=== PATIENT | female | born 1960 | race Caucasian/White ===

== ENCOUNTER 2021-02-04 12:56 | Inpatient (IN) | payer MEDICARE, MEDICAID, SELFPAY ==
--- NOTE | ~2021-02-04 | XR_ITS ---
XR hip LT 2V w AP pelvis DATE: 02/04/2021 16:41 INDICATION: Fall. Left hip and leg pain TECHNIQUE: AP pelvis. AP and lateral views of left hip. COMPARISON: None FINDINGS: Mild to moderate levoscoliosis of the lumbar spine. No pelvic fracture or bone destruction is detected. The pubic symphysis and sacroiliac joints are intact. Hip joint spaces are symmetric and relatively preserved. No fracture or dislocation, avascular necrosis or bone destruction of the left hip. IMPRESSION: No pelvic or left hip fracture is detected Reviewed, dictated and finalized at location A.
--- NOTE | ~2021-02-04 | XR_ITS ---
EXAMINATION: XR chest 1V portable EXAM DATE: 02/04/2021 13:58 INDICATION: Shortness of breath. TECHNIQUE: Portable AP frontal chest x-ray was obtained. Comparison is made to prior examination from 11/10/2017. FINDINGS: Previously seen pleural effusion has resolved. There is linear left basilar opacity consist ent with subsegmental atelectasis. The lungs are otherwise clear. There are no pleural effusions. T he cardiomediastinal silhouette is within normal limits. There is no pneumothorax suspected. The emily mayuri and soft tissues are unremarkable. IMPRESSION: Basilar subsegmental atelectasis. Reviewed, dictated and finalized at location B.
--- NOTE | ~2021-02-04 | CT_ITS ---
EXAMINATION: CT brain wo con EXAM DATE: 02/04/2021 14:23 INDICATION: Slurred speech. TECHNIQUE: Spiral CT of the head was performed without contrast. Axial, coronal and sagittal images were reviewed. The dose-length product (DLP) for this examination was 605.33 mGy-cm. The exposure w as tailored according to patient size, and iterative reconstruction (ASIR) was used as additional dos e reduction technique. There is no prior study for comparison. 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 Small old left cerebellar infarc tion. Moderate size old right caudate head, external capsular infarction. There is no acute intrapare nchymal hemorrhage. No evidence of intraparenchymal brain mass lesion. No evidence of acute infarct ion. Please note that initial head CT has limited sensitivity for small or acute infarctions. There is moderate periventricular and subcortical hypodensity, nonspecific but probably related to small ve ssel ischemic disease. There is mild prominence of the sulci and ventricles related to cerebral atr ophy. There is intracranial carotid arteriosclerosis. There are no extra-axial collections. There is no mass effect or midline shift. 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 There is right-sided lobe s urgical change. Soft tissue is unremarkable. The visualized sinuses and mastoid air cells are well a erated. IMPRESSION: 1. No acute intracranial findings. 2. Old infarctions and chronic age related findings. Reviewed, dictated and finalized at location B.
--- NOTE | ~2021-02-04 | XR_ITS ---
EXAMINATION: XR femur LT min 2V DATE: 02/04/2021 16:41 INDICATION: Left thigh pain. Fall. TECHNIQUE: 2 views of left femur on 4 radiographs were obtained. COMPARISON: None. FINDINGS: Bone alignment is normal. No fracture. There is mild left hip osteoarthritis and mild left knee osteoarthritis. No knee joint effusion. IMPRESSION: 1. Mild polyarticular osteoarthritis. Reviewed, dictated and finalized at location A.
[2021-02-04 12:59] VITALS: BP 99/81; PULSE 106; RESP 21; TEMP 37; O2SAT 99
--- NOTE | 2021-02-04 13:11 | ECG_ITS ---
Measurements Intervals [place] Rate: 100 P: 94 PA: 137 QRS: 69 QRSD: 67 T: 89 QT: 256 QTc: 331 Interpretive Statements SINUS TACHYCARDIA LOW QRS VOLTAGE IN LIMB LEADS NONSPECIFIC T-WAVE ABNORMALITY- ANTEROLAT/HIGH LAT LEADS BASELINE WANDER- I, II, AVR, AVL, AVF, V1-V6 BORDERLINE ECG Electronically Signed On 02-04-2021 14:04:16 CDT by Serjio Ware D.O.
[2021-02-04 13:20] LABS: Add Urine Microscopic? YES; Appearance Urine Cloudy (Clear); Bacteria Urine Trace /hpf; Bilirubin Urine Negative (Negative); Blood Urine Negative (Negative); Color Urine Yellow (Yellow); Glucose Urine UA Negative (Negative); Ketones Urine Negative (Negative); Leukocyte Esterase Ur 2+ LEU/UL (Negative); Mucus Urine Rare /lpf; Nitrate Urine Positive (Negative); Protein Urine 2+ mg/dL (Negative); Specific Grav Ur 1.018 (1.001-1.035); Squamous Epithelial Cell Urine Few /hpf (Few); WBC Urine >75 /hpf
[2021-02-04 13:49] VITALS: BP 104/77; PULSE 108; RESP 23; O2SAT 100
[2021-02-04 14:19] LABS: Basophils Absolute Auto 0.1 K/mm3 (0.0-0.1); Basophils Percent Auto 0.3 % (0.2-1.2); Hemoglobin 13.6 g/dL (12.0-15.0); Immature Granulocyte Absolute 0.14 K/mm3 (0.00-0.031); Immature Granulocyte Percent A 0.7 % (0-0.5); Lymphocytes Absolute Auto 2.88 K/mm3 (0.9-3.2); Lymphocytes Percent Auto 14.2 % (18.3-44.2); Mean Corpuscular HGB Conc 33.2 g/dl (32-36); Mean Corpuscular Hemoglobin 31.3 pg (26-34); Mean Corpuscular Volume 94.5 fl (80-100); Mean Platelet Volume 10.5 fl (7.4-10.4); Monocytes Absolute Auto 2.6 K/mm3 (0.1-0.6); Monocytes Percent Auto 12.7 % (2.6-8.5); Neutrophils Absolute Auto 14.6 K/mm3 (1.3-6.7); Neutrophils Percent Auto 72.1 % (45.5-73.1); Platelet Count Result 175 k/mm3 (150-375); Red Blood Count 4.34 M/mm3 (4.2-5.4); Red Cell Distribution Width 13.4 % (11.5-14.5); White Blood Count 20.2 K/mm3 (4.5-10.0)
[2021-02-04] MEDS: SODIUM CHLORIDE 0.9% IV 1,000 ML 150 ML IV CONT (14:24)
[2021-02-04 14:29] VITALS: BP 129/84; PULSE 101; RESP 31; O2SAT 96
[2021-02-04 14:29] LABS: Alanine Aminotransferase 16 U/L (4-35); Albumin Level 3.7 g/dL (3.5-5.1); Alkaline Phosphatase 41 U/L (38-126); Anion Gap 8 mmol/L (8-16); Aspartate Amino Transferase 38 U/L (14-36); Bilirubin,Total 0.8 mg/dL (0.2-1.3); Blood Urea Nitrogen 12 mg/dL (7-17); Calcium 9.2 mg/dL (8.4-10.2); Carbon Dioxide 27 mmol/L (22-30); Chloride 103 mmol/L (98-107); Estimated Glomerular Filt Rate > 60; Glucose 103 mg/dL (65-105); Potassium 3.9 mmol/L (3.4-5.0); Sodium 138 mmol/L (137-145)
[2021-02-04 14:31] LABS: INR 1.6; Prothrombin Time 19.8 Seconds (11.1-14.7)
[2021-02-04 14:40] LABS: Troponin I < 0.012 ng/mL (0.000-0.034)
[2021-02-04 15:00] LABS: Ethanol < 10 mg/dL (<10)
--- NOTE | 2021-02-04 15:30 | PM.IMHP ---
H&P: HPI History of Present Illness Date/Time: 02/04/21 15:30 Chief Complaint: Altered mental status. Narrative: This is a 60-year-old female with schizophrenia with paranoia, depression, bipolar disorder, and glaucoma which has left her legally blind who presented to the emergency department earlier today via EMS from [facility] for evaluation of altered mental status. She is a poor historian and as such a majority of the following is obtained via a review of her electronic medical records. According to staff at the custodial, she is alert and disoriented at baseline but will follow commands and ambulates with assistance. It is my understanding that she typically communicates in a very loud voice and today she was not speaking nearly as much or as loud and she was brought in for evaluation. At the time my evaluation she reports burning with urination and also complains of left hip and upper leg pain. She tells me that she had a fall although she cannot give me any further details and there is no documentation from the custodial that she had a fall. She has no other complaints and denies headache, fever, chills, sweats, cold and flu symptoms, chest pain, and shortness of breath. Review of Systems Review of Systems: Narrative: Twelve systems were reviewed with pertinent positives and negatives as per HPI. Limited due to her altered mental status and underlying psychiatric illness. Patient is legally blind but says she can see some shadows with her right eye. She tells me that she fell within the last week and thinks that she broke both of her legs. She is not complaining of any pain at this time. No headache. She denies sinus congestion, rhinorrhea, otalgia, and odynophagia. No chest pain, cough, or shortness of breath. She denies nausea, vomiting, and diarrhea. Except as documented, all other systems were reviewed and are negative. [facility] Past Medical History Medical History (Updated 02/04/21 @ 20:05 by Breanna Vitale PA-C) Bipolar disorder Depression with anxiety Glaucoma Legal blindness Paranoid schizophrenia Stress incontinence Tardive dyskinesia Attributed to Abilify. Vitamin D deficiency Surgical History Surgical History (Updated 02/04/21 @ 19:56 by Breanna Vitale PA-C) No history of previous surgery Family History Family History Father Carcinoma of colon Family history of diabetes mellitus in first degree relative Patient's father is Family history of heart disease in male family member before age 55 Grandparent Family history of heart disease in male family member before age 55 Social History Social History (Updated 02/04/21 @ 19:57 by Breanna Vitale PA-C) Social History: Resident at [facility]. Her healthcare power of immigration attorney is Kirt Aguilar and she is listed as a full code. She tells me that it is okay to speak with her sister, Melisa Rodrigues, regarding her medical conditions. The patient tells me that she continues to smoke but I am not certain if this is true or not. She denies alcohol and substance use. On disability due to her psychiatric illnesses and legal blindness. Meds Home Medications and Allergies Home Medications Medication Instructions Recorded Confirmed Type Monique-Lanta 30 ml PO Q4H PRN 02/04/21 02/04/21 History acetaminophen [Tylenol] 650 mg PO Q6H PRN 02/04/21 02/04/21 History cholecalciferol (vitamin D3) 25 mcg PO DAILY 02/04/21 02/04/21 History [Vitamin D3] divalproex 1,000 mg PO HS 02/04/21 02/04/21 History fluticasone propionate [Allergy 1 spray INTRANASAL DAILY 02/04/21 02/04/21 History Relief (fluticasone)] ibuprofen 200 mg PO Q4H PRN 02/04/21 02/04/21 History loperamide 2 mg PO Q3H PRN 02/04/21 02/04/21 History lorazepam 1 mg PO QID 02/04/21 02/04/21 History lurasidone [Latuda] 120 mg PO DAILY 02/04/21 02/04/21 History quetiapine [Sero
--- NOTE | 2021-02-04 15:34 | ED.AMS ---
HPI - Altered Mental Status General Chief Complaint: Altered Mental Status Stated Complaint: AMS Time Seen by Provider: 02/04/21 13:03 Source: EMS and RN notes reviewed Mode of arrival: EMS Limitations: altered mental status History of Present Illness HPI narrative: 60-year-old with schizophrenia, bilateral blindness was sent from a half-way with complaints of increased confusion, patient has been extremely loud since this morning patient is a poor historian . Most of the history was from the half-way records. Patient denies any headache, chest pain or shortness of breath. MD complaint: altered mental status Onset (ago): day(s) (1) Related Data Allergies Allergy/AdvReac Type Severity Reaction Status Date / Time No Known Allergies Allergy Unknown Verified 11/01/17 16:51 Review of Systems Review of Systems: ROS unobtainable: Yes unobtainable due to mental status PMFSH Family History Family History Father Carcinoma of colon Family history of diabetes mellitus in first degree relative Patient's father is Family history of heart disease in male family member before age 55 Grandparent Family history of heart disease in male family member before age 55 Social History Social History Second hand tobacco smoke exposure: No Alcohol intake: never Exam Narrative: Exam Narrative: GENERAL: Well-appearing, well-nourished, and in no acute distress. HEAD: Normocephalic, atraumatic. EYES:Blind ENT: Nares clear, no rhinorrhea or epistaxis. Mucous membranes moist. NECK: Supple. CHEST: Clear to auscultation. No respiratory distress. HEART: Regular rate and rhythm. No murmur heard. Normal peripheral pulses. ABDOMEN: Soft, nontender, nondistended, normal active bowel sounds. EXTREMITIES: Normal range of motion. No edema. SKIN: Warm, dry, no rash. NEURO: No focal deficits. Alert and oriented x3. PSYCH: Normal mood and affect. Course Course Emergency Course: Patient was very cooperative here in the ER, she was comfortably laying on the bed. Informed her about the lab work. Discussed with hospitalist agreed to admit the patient Vital Signs Vital signs: Vital Signs Temperature 37.0 C 02/04/21 12:59 Pulse Rate 106 H 02/04/21 12:59 Respiratory Rate 21 H 02/04/21 12:59 Blood Pressure 99/81 L 02/04/21 12:59 Pulse Oximetry 99 02/04/21 12:59 Temperature 37.0 C 02/04/21 12:59 Pulse Rate 101 H 02/04/21 14:29 Respiratory Rate 31 H 02/04/21 14:29 Blood Pressure 129/84 02/04/21 14:29 Pulse Oximetry 96 02/04/21 14:29 MDM - Altered Mental Status Lab Data Result diagrams: 02/04/21 14:11 02/04/21 14:11 Labs: Lab Results 02/04/21 02/04/21 02/04/21 Range/Units 13:09 14:11 14:11 WBC 20.2 H (4.5-10.0) K/mm3 RBC 4.34 (4.2-5.4) M/mm3 Hgb 13.6 (12.0-15.0) g/dL Hct 41.0 (37.0-47.0) % MCV 94.5 (80-100) fl MCH 31.3 (26-34) pg MCHC 33.2 (32-36) g/dl RDW 13.4 (11.5-14.5) % Plt Count 175 (150-375) k/mm3 MPV 10.5 H (7.4-10.4) fl Immature Gran % (Auto) 0.7 H (0-0.5) % Neut % (Auto) 72.1 (45.5-73.1) % Lymph % (Auto) 14.2 L (18.3-44.2) % Burt % (Auto) 12.7 H (2.6-8.5) % Eos % (Auto) 0.0 (0-4.4) % Baso % (Auto) 0.3 (0.2-1.2) % Lymph # (Auto) 2.88 (0.9-3.2) K/mm3 Burt # (Auto) 2.6 H (0.1-0.6) K/mm3 Eos # (Auto) 0.0 (0-0.3) K/mm3 Baso # (Auto) 0.1 (0.0-0.1) K/mm3 Abs Immat Gran (auto) 0.14 H (0.00-0.031) K/mm3 Absolute Neuts (auto) 14.6 H (1.3-6.7) K/mm3 Absolute Nucleated RBC 0.0 (0.0-0.012) K/mm3 Nucleated RBC % 0.0 (0.0-0.2) % PT 19.8 H (11.1-14.7) Seconds INR 1.6 Sodium (137-145) mmol/L Potassium (3.4-5.0) mmol/L Chloride (98-107) mmol/L Carbon Dioxide (22-30) mmol/L Anion Gap (8-16) mmol/L BUN
[2021-02-04 15:44] VITALS: BP 105/71; PULSE 96; RESP 25; O2SAT 93
[2021-02-04 16:37] VITALS: BP 128/83; PULSE 93; RESP 20; O2SAT 98
[2021-02-04 17:06] VITALS: BMI 25.2
[2021-02-04] MEDS: SODIUM CHLORIDE 0.9% IV 1,000 ML 125 ML IV CONT (18:45)
[2021-02-04] MEDS: LORazepam (*CRX) 1 MG TABLET PO (21:24)
[2021-02-04] MEDS: DIVALPROEX SODIUM DR 250 MG TABEC 1000 MG PO (21:24)
[2021-02-04] MEDS: rOPINIRole HCL 1 MG TABLET 2 MG PO (21:25)
[2021-02-04] MEDS: QUEtiapine FUMARATE 25 MG TABLET 75 MG PO (21:25)
[2021-02-04 22:00] VITALS: BP 100/50; PULSE 85; RESP 16; TEMP 36.4; O2SAT 96
[2021-02-05 06:00] VITALS: BP 100/60; PULSE 88; RESP 18; TEMP 36.6; O2SAT 94
[2021-02-05 06:12] LABS: Basophils Percent Auto 0.3 % (0.2-1.2); Eosinophils Percent Auto 0.2 % (0-4.4); Hematocrit 36.5 % (37.0-47.0); Hemoglobin 11.9 g/dL (12.0-15.0); Immature Granulocyte Absolute 0.05 K/mm3 (0.00-0.031); Immature Granulocyte Percent A 0.4 % (0-0.5); Lymphocytes Percent Auto 20.2 % (18.3-44.2); Mean Corpuscular HGB Conc 32.6 g/dl (32-36); Mean Corpuscular Hemoglobin 31.1 pg (26-34); Mean Corpuscular Volume 95.3 fl (80-100); Mean Platelet Volume 10.7 fl (7.4-10.4); Monocytes Absolute Auto 1.8 K/mm3 (0.1-0.6); Monocytes Percent Auto 14.3 % (2.6-8.5); Neutrophils Percent Auto 64.6 % (45.5-73.1); Platelet Count Result 154 k/mm3 (150-375); Red Blood Count 3.83 M/mm3 (4.2-5.4); Red Cell Distribution Width 13.3 % (11.5-14.5); White Blood Count 12.4 K/mm3 (4.5-10.0)
[2021-02-05 06:23] LABS: Ammonia < 9 umol/L (9-30)
[2021-02-05 06:26] LABS: Alanine Aminotransferase 16 U/L (4-35); Albumin Level 3.1 g/dL (3.5-5.1); Alkaline Phosphatase 37 U/L (38-126); Anion Gap 6 mmol/L (8-16); Aspartate Amino Transferase 31 U/L (14-36); Bilirubin,Total 0.4 mg/dL (0.2-1.3); Blood Urea Nitrogen 8 mg/dL (7-17); Calcium 8.5 mg/dL (8.4-10.2); Carbon Dioxide 26 mmol/L (22-30); Chloride 108 mmol/L (98-107); Estimated CRCL calculation 62 ml/min; Estimated Glomerular Filt Rate > 60; Glucose 100 mg/dL (65-105); Potassium 3.8 mmol/L (3.4-5.0); Sodium 140 mmol/L (137-145)
[2021-02-05 07:20] LABS: Valproic Acid 77.7 ug/mL (50-120)
[2021-02-05] MEDS: rOPINIRole HCL 1 MG TABLET 2 MG PO ×2 (09:13→20:41)
[2021-02-05] MEDS: FLUTICASONE PROPIONATE 0.05% NA SPR 16 GM BTL (*BKC) 1 SPRAY NASAL (09:14)
[2021-02-05] MEDS: QUEtiapine FUMARATE 25 MG TABLET PO ×2 (09:14→11:11)
[2021-02-05] MEDS: CHOLECALCIFEROL 1,000 UNITS TABLET 1000 UNITS PO (09:14)
[2021-02-05] MEDS: LORazepam (*CRX) 1 MG TABLET PO ×4 (09:14→20:41)
--- NOTE | 2021-02-05 11:05 | PM.IMPN ---
Progress Note: A&P Assessment and Plan (1) Altered mental status: Qualifiers: Altered mental status type: unspecified Qualified Code(s): R41.82 - Altered mental status, unspecified Code(s): R41.82 - Altered mental status, unspecified Status: Acute Assessment and Plan: The patient seems to be at her reported baseline at the time my evaluation. evidence of infection, specifically UTI, and likely that is the etiology of her increasing confusion earlier today. Patient is able to tell me name and place, but does not know the year WBC are trending down 12.4 today from 20.2 UA does indicate an infection Urine culture pending Ceftriaxone 1 gm Daily day 2 Trend Labs Labs in the am (2) Urinary tract infection: Code(s): N39.0 - Urinary tract infection, site not specified Status: Acute Assessment and Plan: See above (3) Psychiatric illness: Code(s): F99 - Mental disorder, not otherwise specified Status: Acute Assessment and Plan: Patient does have some paranoia and has some stories Paranoid schizophrenia, depression, anxiety, and bipolar disorder. Continue divalproex 1000mg PO, lorazepam 1mg PO QID, lurasidone 120mg PO Daily, quetiapine 20mg PO scheduled and PRN. (4) Left leg pain: Code(s): M79.605 - Pain in left leg Status: Acute Assessment and Plan: Nonfocal exam. Leg xray shows no fracture Hip xray shows no fracture Time Spent With Patient Time with patient: 25 - 35 minutes Subjective Date/time seen: 02/05/21 11:05 Miss Novak is a 60-year-old female with past medical history of schizophrenia, depression, bipolar, and glaucoma who presented to the emergency room for altered mental status. At baseline this patient is alert oriented times 1-2. Today patient could tell me that she was at the hospital and her name. She also could tell me the present with choices. Upon walking into the room patient was sitting on her bed and stating that she went to get out here in smoke a cigarette. Patient is a very poor historian and does not know why she is here however was reported by the [facility] that she was more confused and less talkative. Patient is very emotional and is up and down. She keep screaming and crying about her mother and father were . She also states that she fell about a week ago and broke her arm and hip. However she does have full flexion and extension in both areas. She does state that she is sore however cannot give a location. She is a very loud. Patient seems as if the room is spinning when looking in at her eyes however she denies being dizzy, lightheadedness, fatigue, weakness, nausea, vomiting, constipation, sweats, chills, diarrhea, falls, or syncope. Asked patient about her urinary dysfunction she stated that she is not having any urinary dysfunction today. Review of Systems Review of Systems: All systems reviewed & are unremarkable except as noted in HPI and below Exam Const: General: cooperative, healthy appearing, comfortable, no acute distress, well developed, alert and awake Nutritional Appearance: average body habitus, well nourished and thin Orientation/consciousness: oriented to person and oriented to place Limitations: no limitations HENMT: Head: normal to inspection Ears: hearing grossly normal bilaterally and TM's normal bilaterally General nose exam: Normal external nose present Mouth: Yes Normal oral and palatal mucosa present, Yes lip normal and Yes tongue normal Teeth and gingiva: abnormal tooth and associated gingiva and poor dentition Eyes: General: appearance normal, both eyes and all related structures Alignment and Position: alignment normal Periorbital: periorbital findings normal Eyelids: eyelids normal Conjunctivae: conjunctivae normal Sclera: sclerae normal Pupils: Equal, round and reactive pupils present EOM: EOMs int
[2021-02-05 11:36] VITALS: O2SAT 94
[2021-02-05 14:00] VITALS: BP 103/63; PULSE 106; RESP 16; TEMP 35.9; O2SAT 100
[2021-02-05] MEDS: QUEtiapine FUMARATE 25 MG TABLET 75 MG PO (20:41)
[2021-02-05] MEDS: DIVALPROEX SODIUM DR 250 MG TABEC 1000 MG PO (20:42)
[2021-02-05 21:53] VITALS: BP 106/65; PULSE 78; RESP 20; TEMP 36.6; O2SAT 97
[2021-02-06 05:49] VITALS: BP 90/63; PULSE 77; RESP 16; TEMP 36.3; O2SAT 94
[2021-02-06 06:21] LABS: Hematocrit 36.7 % (37.0-47.0); Hemoglobin 11.9 g/dL (12.0-15.0); Mean Corpuscular HGB Conc 32.4 g/dl (32-36); Mean Corpuscular Hemoglobin 30.9 pg (26-34); Mean Corpuscular Volume 95.3 fl (80-100); Platelet Count Result 189 k/mm3 (150-375); Red Blood Count 3.85 M/mm3 (4.2-5.4); Red Cell Distribution Width 13.2 % (11.5-14.5); White Blood Count 7.2 K/mm3 (4.5-10.0)
[2021-02-06 06:32] LABS: Anion Gap 7 mmol/L (8-16); Blood Urea Nitrogen 10 mg/dL (7-17); Carbon Dioxide 28 mmol/L (22-30); Chloride 108 mmol/L (98-107); Estimated CRCL calculation 62 ml/min; Estimated Glomerular Filt Rate > 60; Glucose 92 mg/dL (65-105); Potassium 3.9 mmol/L (3.4-5.0); Sodium 143 mmol/L (137-145)
[2021-02-06] MEDS: ACETAMINOPHEN 325 MG TABLET 650 MG PO (07:01)
[2021-02-06 07:05] VITALS: BP 106/72
[2021-02-06] MEDS: rOPINIRole HCL 1 MG TABLET 2 MG PO (08:10)
[2021-02-06] MEDS: FLUTICASONE PROPIONATE 0.05% NA SPR 16 GM BTL (*BKC) 1 SPRAY NASAL (08:10)
[2021-02-06] MEDS: QUEtiapine FUMARATE 25 MG TABLET PO ×2 (08:10→12:15)
[2021-02-06] MEDS: CHOLECALCIFEROL 1,000 UNITS TABLET 1000 UNITS PO (08:10)
[2021-02-06] MEDS: LORazepam (*CRX) 1 MG TABLET PO ×2 (08:10→12:15)
--- NOTE | 2021-02-06 10:30 | PM.DS ---
DS: Admitting Diagnosis Admitting Diagnosis Admitting Diagnosis: UTI DS: Discharge Diagnosis Discharge Diagnosis (1) Altered mental status: Qualifiers: Altered mental status type: unspecified Qualified Code(s): R41.82 - Altered mental status, unspecified Code(s): R41.82 - Altered mental status, unspecified Status: Acute Assessment and Plan: The patient seems to be at her reported baseline at the time my evaluation. evidence of infection, specifically UTI, and likely that is the etiology of her increasing confusion earlier today. Patient is able to tell me name and place, but does not know the year WBC are trending down 12.4 today from 20.2 UA does indicate an infection Urine culture pending Ceftriaxone 1 gm Daily day 2 Trend Labs Labs in the am (2) Urinary tract infection: Code(s): N39.0 - Urinary tract infection, site not specified Status: Acute Assessment and Plan: See above (3) Psychiatric illness: Code(s): F99 - Mental disorder, not otherwise specified Status: Acute Assessment and Plan: Patient does have some paranoia and has some stories Paranoid schizophrenia, depression, anxiety, and bipolar disorder. Continue divalproex 1000mg PO, lorazepam 1mg PO QID, lurasidone 120mg PO Daily, quetiapine 20mg PO scheduled and PRN. (4) Left leg pain: Code(s): M79.605 - Pain in left leg Status: Acute Assessment and Plan: Nonfocal exam. Leg xray shows no fracture Hip xray shows no fracture DS: Summary Hospital Course Hospital Course: Miss Novak is a 60-year-old female with past medical history of schizophrenia, depression, bipolar, and glaucoma who presented to the emergency room for altered mental status. At baseline this patient is alert oriented times 1-2. Patient has improved since admission, and seems to be back at her baseline. Patient has been treated with Rocephin for her UTI which seems to be working with her white blood cell count trending downward 7.2 today which started at 12.4 upon admission. Patient has no complaints except for she is complaining of left hip pain. Patient stated that she did have a fall [facility] the [facility] and her hip hurts. I asked patient if she feels like herself she said she did feel like herself. I also talked to the patient about going back to the nurse, she said she was ready. Patient is very talkative and talks very loud. She does seem to have a slow to recall response system as well. She denies being dizzy, lightheadedness, fatigue, weakness, nausea, vomiting, constipation, sweats, chills, diarrhea, urinary dysfunction, pain or burning on urination, or syncope. Patient did have foot x-rays and hip x-rays done while she was here. Both of which showed no fracture. Patient stated she also is in a wheelchair all the time and that she does not walk in the [facility]. We will get patient up to the chair today. Status at Discharge Functional status at discharge: wheelchair bound Overall status at discharge: patient is back to baseline Time Spent with Patient Time attestation: Total time spent providing and/or coordinating discharge services: Chart review, documentation, exam, diagnostic test resulting, and education. Time spent: Greater than 30 minutes Exam Const: General: cooperative, healthy appearing, comfortable, no acute distress, well developed, alert, awake, confusion and patient obtunded Nutritional Appearance: average body habitus, well nourished and thin Orientation/consciousness: oriented to person, oriented to place, confusion and patient obtunded Limitations: no limitations HENMT: Head: normal to inspection Ears: hearing grossly normal bilaterally and TM's normal bilaterally General nose exam: Normal external nose present Mouth: Yes Normal oral and palatal mucosa present, Yes lip normal and Yes tongue normal Teeth and gin
[2021-02-06 11:51] LABS: EDCOVIDSCREEN Negative (Negative)
== END 2021-02-06 13:45 | DRG 690 ==
LOC: ANHED 15:51 → ANH3MEDSUR 16:45
PROVIDERS: Nurse Practitioner; Physician Assistant; Admitting Provider Family Medicine; Emergency Provider Family Medicine; Visit Provider Internal Medicine
DX: N39.0 Urinary tract infection, site not specified (principal); F20.0 Paranoid schizophrenia; Z20.822 Contact with and (suspected) exposure to COVID-19; R41.82 Altered mental status, unspecified; F31.9 Bipolar disorder, unspecified; F41.8 Other specified anxiety disorders; M79.605 Pain in left leg; H40.9 Unspecified glaucoma; Z79.899 Other long term (current) drug therapy
CPT/HCPCS: 36415; 51701; 70450; 71045; 73502; 73552; 80048; 80053; 80076; 80164; 80307; 81001; 82140; 82607; 83735; 84443; 84484; 85025; 85027; 85610; 87077; 87086; 87088; 87186; 87426; 93005; 96361; 96365; 99285; A9270; C9803; G0378; J0696; J7030

== ENCOUNTER 2021-06-01 10:04 | Emergency (ER) | payer MEDICARE, MEDICAID, SELFPAY ==
--- NOTE | ~2021-06-01 | XR_ITS ---
EXAMINATION: XR finger 4th LT min 2V EXAM DATE: 06/01/2021 11:32 INDICATION: Left 4th finger erythema, edema. TECHNIQUE: Left 4th finger frontal, lateral and oblique projections obtained and reviewed. There i s no prior study for comparison. FINDINGS: There is swelling over the left 4th proximal interphalangeal joint. No evidence of joint s pace widening or periarticular erosive change. There are no acute fractures identified. No radiopaque foreign bodies identified. IMPRESSION: Nonspecific left 4th finger swelling. Reviewed, dictated and finalized at location A.
[2021-06-01 10:04] VITALS: BP 95/81; PULSE 95; RESP 16; TEMP 36.8; O2SAT 96
--- NOTE | 2021-06-01 10:30 | ED.UPPEXIN ---
HPI - Extremity Injury (Upper) General Chief Complaint: Extremity Injury, Upper <Gayla Katz PA-C - Last Filed: 06/01/21 13:15> Stated Complaint: RING STUCK ON FINGER <Gayla Katz PA-C - Last Filed: 06/01/21 13:15> Time Seen by Provider: 06/01/21 10:07 <Gayla Katz PA-C - Last Filed: 06/01/21 13:15> Source: patient <BEBA Bustamante Last Filed: 06/01/21 13:15> Mode of arrival: ambulatory <BEBA Bustamante Last Filed: 06/01/21 13:15> Limitations: other (poor historian) <Gayla Katz PA-C - Last Filed: 06/01/21 13:15> History of Present Illness HPI narrative: This is a 60 year old female that presents to the ER for a ring stuck on her finger. She believes it has been stuck on there for a month. Reports it is painful and she has now noted redness and swelling to the finger. Denies fever. <Gayla Katz PA-C - Last Filed: 06/01/21 13:15> Related Data Home Medications: Home Medications Medication Instructions Recorded Confirmed Monique-Lanta 30 ml PO Q4H PRN 02/04/21 02/04/21 Latuda 120 mg PO DAILY 02/04/21 02/04/21 acetaminophen [Tylenol] 650 mg PO Q6H PRN 02/04/21 02/04/21 cholecalciferol (vitamin D3) 25 mcg PO DAILY 02/04/21 02/04/21 [Vitamin D3] divalproex 1,000 mg PO HS 02/04/21 02/04/21 fluticasone propionate [Allergy 1 spray INTRANASAL DAILY 02/04/21 02/04/21 Relief (fluticasone)] ibuprofen 200 mg PO Q4H PRN 02/04/21 02/04/21 loperamide 2 mg PO Q3H PRN 02/04/21 02/04/21 lorazepam 1 mg PO QID 02/04/21 02/04/21 quetiapine [Seroquel] See Rx Instructions .ROUTE .COMPLEX 02/04/21 02/04/21 ropinirole 2 mg PO BID 02/04/21 02/04/21 sennosides-docusate sodium 1 tablet PO HS PRN 02/04/21 02/04/21 [Senexon-S] atorvastatin 10 mg PO HS 06/01/21 <Gayla Katz PA-C - Last Filed: 06/01/21 13:15> Allergies/Adverse Reactions: Allergies Allergy/AdvReac Type Severity Reaction Status Date / Time No Known Allergies Allergy Unknown Verified 02/04/21 18:42 <Gayla Katz PA-C - Last Filed: 06/01/21 13:15> Review of Systems Review of Systems: CONSTITUTIONAL: Denies fever SKIN: Reports redness and swelling <Gayla Katz PA-C - Last Filed: 06/01/21 13:15> All systems reviewed & are unremarkable except as noted in HPI and below <Gayla Katz PA-C - Last Filed: 06/01/21 13:15> [facility] Past Medical History Medical History: Medical History (Updated 06/01/21 @ 13:13 by Gayla Katz PA-C) Bipolar disorder Depression with anxiety Glaucoma Legal blindness Paranoid schizophrenia Stress incontinence Tardive dyskinesia Attributed to Abilify. Vitamin D deficiency <Gayla Katz PA-C - Last Filed: 06/01/21 13:15> Surgical History Surgical History: Surgical History (Updated 02/04/21 @ 19:56 by Breanna Vitale PA-C) No history of previous surgery <Gayla Katz PA-C - Last Filed: 06/01/21 13:15> Family History Family History: Family History Father Carcinoma of colon Family history of diabetes mellitus in first degree relative Patient's father is Family history of heart disease in male family member before age 55 Grandparent Family history of heart disease in male family member before age 55 <Gayla Katz PA-C - Last Filed: 06/01/21 13:15> Social History Social History: Social History (Updated 02/04/21 @ 19:57 by Breanna Vitale PA-C) Social History: Resident at [facility]. Her healthcare power of admitted attorneys is Kirt Aguilar and she is listed as a full code. She tells me that it is okay to speak with her sister, Melisa Rodrigues, regarding her medical conditions. The patient tells me that she continues to smoke but I am not certain if this is true or not. She denies alcohol and substance use. On disability due to her psychiatric illnesses and legal blindness. <JULIEAT Bustamante-
[2021-06-01 10:52] LABS: Basophils Percent Auto 0.3 % (0.2-1.2); Eosinophils Absolute Auto 0.1 K/mm3 (0-0.3); Eosinophils Percent Auto 0.8 % (0-4.4); Hematocrit 45.2 % (37.0-47.0); Hemoglobin 14.7 g/dL (12.0-15.0); Immature Granulocyte Absolute 0.04 K/mm3 (0.00-0.031); Immature Granulocyte Percent A 0.3 % (0-0.5); Lymphocytes Percent Auto 23.1 % (18.3-44.2); Mean Corpuscular HGB Conc 32.5 g/dl (32-36); Mean Corpuscular Hemoglobin 31.4 pg (26-34); Mean Corpuscular Volume 96.6 fl (80-100); Mean Platelet Volume 10.1 fl (7.4-10.4); Monocytes Percent Auto 8.5 % (2.6-8.5); Neutrophils Absolute Auto 7.8 K/mm3 (1.3-6.7); Platelet Count Result 241 k/mm3 (150-375); Red Blood Count 4.68 M/mm3 (4.2-5.4); White Blood Count 11.7 K/mm3 (4.5-10.0)
[2021-06-01 11:08] LABS: Anion Gap 9 mmol/L (8-16); Blood Urea Nitrogen 13 mg/dL (7-17); CRP < 0.5 mg/dL (<1.0); Calcium 9.5 mg/dL (8.4-10.2); Carbon Dioxide 30 mmol/L (22-30); Chloride 105 mmol/L (98-107); Estimated Glomerular Filt Rate > 60; Glucose 131 mg/dL (65-110); Potassium 4.1 mmol/L (3.4-5.0); Sodium 144 mmol/L (137-145)
[2021-06-01 11:19] LABS: Erythrocyte Sedimentation Rate 16 mm/hr (0-20)
[2021-06-01] MEDS: TETANUS,DIPHTHERIA,AC PERTUSSIS ADULT (0.5 ML) BOOSTRIX IM (12:26)
[2021-06-01] MEDS: ceFAZolin SODIUM 1 GM VIAL IM (12:35)
[2021-06-01] MEDS: WATER, STERILE FOR INJECTION 10 ML VIAL XX (12:35)
--- NOTE | 2021-06-01 15:40 | PC.NURSE ---
made contact with [facility] for a new eta [id number]
--- NOTE | 2021-06-01 19:16 | PC.NURSE ---
Per offgoing shift RN, pt to go back to [facility]. family notified and unable to provide ride for pt. [facility] ETA [id number].
--- NOTE | 2021-06-01 19:21 | PC.NURSE ---
Addendum entered by Kena Olsen 06/01/21 19:37: [facility] - no truck available ankit Original Note: [facility] - no truck available
[2021-06-01 19:25] VITALS: BP 117/66; PULSE 82; RESP 16; TEMP 36.3; O2SAT 98
--- NOTE | 2021-06-01 19:50 | PC.NURSE ---
called [facility] no truck available
--- NOTE | 2021-06-01 19:53 | PC.NURSE ---
called [facility] - no truck available
--- NOTE | 2021-06-01 21:30 | PC.NURSE ---
[facility] here
== END 2021-06-01 22:01 ==
PROVIDERS: Physician Assistant; Emergency Provider Emergency Medicine
DX: S60.455A Superficial foreign body of left ring finger, initial encounter (principal); L03.012 Cellulitis of left finger; F31.9 Bipolar disorder, unspecified; F41.8 Other specified anxiety disorders; H54.8 Legal blindness, as defined in USA; F20.0 Paranoid schizophrenia; Z23 Encounter for immunization; W45.8XXA Other foreign body or object entering through skin, initial encounter
CPT/HCPCS: 36415; 73140; 80048; 85025; 85652; 86140; 90471; 90715; 96372; 99283; J0690

== ENCOUNTER 2022-02-19 14:59 | Emergency (ER) | payer OTHER, SELFPAY ==
[2022-02-19] VITALS (19 sets, daily range): BP systolic 93–106; BP diastolic 64–75; PULSE 83–97; RESP 18–25; O2SAT 89–100
--- NOTE | ~2022-02-19 | XR_ITS ---
EXAMINATION: XR chest 1V DATE: 02/19/2022 16:03 INDICATION: Fall from wheelchair. Altered mental status. TECHNIQUE: A single frontal view of the chest was obtained. COMPARISON: Chest single view 02/04/2021, chest CT 11/11/2017 FINDINGS: There are lucencies and chronic interstitial opacities in the lungs, consistent with emphys anderson. There is mild atelectasis versus scarring at left lung base. No pleural effusion or pneumothorax . The heart size is normal. IMPRESSION: 1. Emphysema. 2. Mild atelectasis/scarring at left lung base. Reviewed, dictated and finalized at location B.
--- NOTE | ~2022-02-19 | CT_ITS ---
EXAMINATION: CT brain wo con DATE: 02/19/2022 16:01 INDICATION: Head injury. TECHNIQUE: Computed tomography (CT) of the head was performed without intravenous contrast. The mA wa s adjusted according to patient size. Iterative reconstruction technique was employed. The dose-lengt h product was 605.33 mGy-cm. COMPARISON: Head CT 02/04/2021 FINDINGS: There is chronic encephalomalacia involving the right frontal lobe and right basal ganglia. There is chronic encephalomalacia in left temporal parietal occipital region. There is chronic encep halomalacia in left cerebellum. There is no intracranial hemorrhage, acute infarction, or abnormal in tracranial mass lesion. There is mild ex vacuo dilatation of the right lateral ventricle. There is mi ld mucosal thickening in the paranasal sinuses. The mastoid air cells are normal. Left-sided phthisis bulbi is noted. There are changes of bilateral scleral banding procedures. There is a dislocated rig ht lens replacement. There is left frontal scalp soft tissue swelling. IMPRESSION: 1. Multifocal chronic encephalomalacia in the brain. Reviewed, dictated and finalized at location B.
--- NOTE | ~2022-02-19 | CT_ITS ---
EXAMINATION: CT cervical spine wo con DATE: 02/19/2022 16:01 INDICATION: Fell out of wheelchair and struck head on the ground. Left frontal cephalohematoma. TECHNIQUE: Computed tomography (CT) of the cervical spine was performed without intravenous contrast. Automated exposure control and iterative reconstruction technique were employed. Exam dose: 271.11 mGy-cm total exam DLP. COMPARISON: None FINDINGS: There is prominent reversal of cervical curvature. C1 and C2 are normally aligned and the odontoid process is intact. There is minimal anterolisthesis at C2-3. There is moderate degenerative disc disease at C2-3. Moderately severe degenerative disc disease at C3-4. Severe degenerative disease at C4-5, C5-6, C6-7, C7-T1, with anterior posterior spurring at each of t hese levels. There is degenerative change at the apophyseal joints, most prominent on the left at C2-3 and C3-4. No fracture or dislocation or locked facet or prevertebral soft tissue swelling. Emphysematous changes are noted in the included upper lung zones. IMPRESSION: Prominent reversal cervical curvature Extensive cervical spondylosis No fracture or dislocation or locked facet Reviewed, dictated and finalized at Location A. Reviewed, dictated and finalized at location A.
--- NOTE | 2022-02-19 15:07 | PC.NURSE ---
Dr. Pompa at bedside to assess pt.
--- NOTE | 2022-02-19 15:09 | ECG_ITS ---
Measurements Intervals [place] Rate: 94 P: 73 NC: 138 QRS: 43 QRSD: 78 T: 70 QT: 274 QTc: 344 Interpretive Statements SINUS RHYTHM NONSPECIFIC T-WAVE ABNORMALITY COMPARED TO ECG 02/04/2021 13:27:46 NO SIGNIFICANT DIFFERENCE Electronically Signed On 02-20-2022 14:26:11 CDT by Clarence Sepulveda M.D.
[2022-02-19 15:26] LABS: Alveolar/Arterial O2 Gradient 50.5 mmHg; Base Excess ABG -0.1 mEq/l (+/-2.0); Carboxyhemoglobin 2.8 % THb (0-2.0); Fractional Inspired Oxygen 21 %; HCO3 ABG 23.5 mEq/l (22.0-26.0); Methemoglobin ABG 0.2 %THb (0-1.5); Oxyhemoglobin 88.9 % THb (90.0-100.0); PCO2 ABG 35.1 mmHg (35.0-45.0); PO2 ABG 57.2 mmHg (80.0-100.0); PO2 FiO2 Ratio Arterial Blood 2.72 %; Reduced Hemoglobin 8.1 %THb (0-5.0); Total Hemoglobin 14.4 g/dL (12.0-18.0); pH ABG 7.443 (7.350-7.450)
[2022-02-19 15:27] LABS: Device ROOM AIR; Modified Allen's Test Pass; Site Drawn RIGHT RADIAL
--- NOTE | 2022-02-19 15:28 | ED.FALL ---
HPI - Fall General Chief Complaint: Fall Stated Complaint: fall Time Seen by Provider: 02/19/22 15:03 Source: patient, EMS and RN notes reviewed Mode of arrival: EMS Limitations: dementia History of Present Illness HPI Narrative: This is a 61 year old female with psychiatric history who presents from intermediate for evaluation of a fall. Nursing staff states patient fell out of the wheelchair. Nursing staff states it was a witnessed fall. PAtient states she was sleeping and fell out of her wheelchair. She has hematoma to her left fore head. She is not on chronic anticoagulation. EMS reported to nursing that she is at her baseline although she is lethargic. MD complaint: fall Onset (ago): hour(s) Fall witnessed: yes, by living facility staff Related Data Home Medications Medication Instructions Recorded Confirmed Monique-Lanta 30 ml PO Q4H PRN Constipation 02/04/21 02/04/21 acetaminophen 325 mg capsule 650 mg PO Q6H PRN Pain 02/04/21 02/04/21 (Tylenol) cholecalciferol (vitamin D3) 25 25 mcg PO DAILY 02/04/21 02/04/21 mcg (1,000 unit) capsule (Vitamin D3) divalproex 500 mg tablet,delayed 1,000 mg PO HS 02/04/21 02/04/21 release fluticasone propionate 50 1 spray intranasal DAILY 02/04/21 02/04/21 mcg/actuation nasal spray,suspension (Allergy Relief (fluticasone)) ibuprofen 200 mg capsule 200 mg PO Q4H PRN Pain 02/04/21 02/04/21 loperamide 2 mg tablet 2 mg PO Q3H PRN Diarrhea 02/04/21 02/04/21 lorazepam 1 mg tablet 1 mg PO QID 02/04/21 02/04/21 lurasidone 120 mg tablet (Latuda) 120 mg PO DAILY 02/04/21 02/04/21 quetiapine 25 mg tablet (Seroquel) See Rx Instructions .Route .COMPLEX 02/04/21 02/04/21 ropinirole 2 mg tablet 2 mg PO BID 02/04/21 02/04/21 sennosides 8.6 mg-docusate sodium 1 tablet PO HS PRN Constipation 02/04/21 02/04/21 50 mg tablet (Senexon-S) atorvastatin 10 mg tablet 10 mg PO HS 06/01/21 Allergies Allergy/AdvReac Type Severity Reaction Status Date / Time No Known Allergies Allergy Unknown Verified 02/04/21 18:42 Review of Systems Review of Systems: ROS unobtainable: Yes unobtainable due to mental status PMFSH Past Medical History Medical History Bipolar disorder Depression with anxiety Glaucoma Legal blindness Paranoid schizophrenia Stress incontinence Tardive dyskinesia Attributed to Abilify. Vitamin D deficiency Surgical History Surgical History No history of previous surgery Family History Family History Father Carcinoma of colon Family history of diabetes mellitus in first degree relative Patient's father is Family history of heart disease in male family member before age 55 Grandparent Family history of heart disease in male family member before age 55 Social History Social History (Updated 02/04/21 @ 19:57 by Breanna Vitale PA-C) Social History: Resident at [facility]. Her healthcare power of sports attorney is Kirt Aguilar and she is listed as a full code. She tells me that it is okay to speak with her sister, Melisa Rodrigues, regarding her medical conditions. The patient tells me that she continues to smoke but I am not certain if this is true or not. She denies alcohol and substance use. On disability due to her psychiatric illnesses and legal blindness. Exam Const: General: no acute distress Other: lethargic HENMT: Head: hematoma left frontal Eyes: EOM: EOMs intact bilaterally Other: bilateral eyes with cornea opacification Chest: Chest palpation & inspection: normal inspection of the chest Resp: Effort & Inspection: normal respiratory effort Auscultation: clear to auscultation bilaterally and breath sounds present Cardio: Rate: regular rate Rhythm: regular rhythm Heart sounds: no murmurs GI: GI Palp: Yes Soft to palpation, No
[2022-02-19 16:33] LABS: Alanine Aminotransferase 9 U/L (6-35); Albumin Level 3.6 g/dL (3.5-5.1); Alkaline Phosphatase 42 U/L (38-126); Anion Gap 5 mmol/L (8-16); Aspartate Amino Transferase 13 U/L (14-36); Bilirubin,Total 0.3 mg/dL (0.2-1.3); Blood Urea Nitrogen 10 mg/dL (7-17); Calcium 8.2 mg/dL (8.4-10.2); Carbon Dioxide 26 mmol/L (22-30); Chloride 105 mmol/L (98-107); Estimated CRCL calculation 75 ml/min; Estimated Glomerular Filt Rate > 60; Glucose 101 mg/dL (65-110); Potassium 3.6 mmol/L (3.4-5.0); Sodium 136 mmol/L (137-145)
[2022-02-19 16:40] LABS: INR 1.1; Prothrombin Time 14.1 Seconds (11.1-14.7)
[2022-02-19 16:41] LABS: Partial Thromboplastin Time 27.6 SECONDS (22.3-36.8)
[2022-02-19 17:34] LABS: Appearance Urine Clear (Clear); Bilirubin Urine 1+ (Negative); Blood Urine Negative (Negative); Color Urine Yellow (Yellow); Glucose Urine UA Negative (Negative); Ketones Urine Negative (Negative); Leukocyte Esterase Ur Negative LEU/UL (Negative); Nitrate Urine Negative (Negative); Protein Urine Negative (Negative); Specific Grav Ur 1.025 (1.001-1.035); pH Urine 6.5 (5.0-9.0)
[2022-02-19 17:45] LABS: Mucus Urine Rare /lpf; Squamous Epithelial Cell Urine Few /hpf (Few)
[2022-02-19 18:05] LABS: Add Urine Microscopic? YES
--- NOTE | 2022-02-19 19:00 | PC.NURSE ---
Patient report provided to [facility]. All questions answered. Patient prepared for transport via stretcher. Patient discharge with all belongings. VSS at time of transport.
== END 2022-02-19 19:05 ==
PROVIDERS: Emergency Provider General Practice
DX: S00.83XA Contusion of other part of head, initial encounter (principal); F41.8 Other specified anxiety disorders; F31.9 Bipolar disorder, unspecified; H54.8 Legal blindness, as defined in USA; F20.0 Paranoid schizophrenia; N39.3 Stress incontinence (female) (male); E55.9 Vitamin D deficiency, unspecified; M47.812 Spondylosis without myelopathy or radiculopathy, cervical region; J43.9 Emphysema, unspecified; G93.89 Other specified disorders of brain; R94.31 Abnormal electrocardiogram [ECG] [EKG]; W05.0XXA Fall from non-moving wheelchair, initial encounter
CPT/HCPCS: 36415; 36600; 51701; 70450; 71045; 72125; 80053; 81001; 82375; 82805; 83050; 85610; 85730; 93005; 99284

== ENCOUNTER 2023-05-14 16:53 | Emergency (ER) | payer OTHER, SELFPAY ==
[2023-05-14] VITALS (8 sets, daily range): BP systolic 109–115; BP diastolic 73–76; PULSE 78–82; RESP 18; O2SAT 94–97
--- NOTE | ~2023-05-14 | CT_ITS ---
EXAMINATION: CT lumbar spine wo con DATE: 05/14/2023 18:20 INDICATION: Right hip pain post fall TECHNIQUE: Computed tomography (CT) of the lumbar spine was performed without intravenous contrast. A utomated exposure control and iterative reconstruction technique were employed. The dose-length produ ct was 1133.49 mGy-cm. COMPARISON: Radiographs dated 11/05/2017 FINDINGS: 2-3 mm anterolisthesis L3 on L4. Alignment is otherwise normal. Vertebral body heights are normal. No fracture. Mild disc height loss at L2-L3 and L3-L4. Paravertebral soft tissues are unremarkable. The following disc levels are specifically discussed: T11-T12: The disc does not extend beyond the endplate margin. There is moderate bilateral facet joint osteoarthritis. There is no neural foraminal stenosis. There is no central canal stenosis. T12-L1: The disc does not extend beyond the endplate margin. There is mild bilateral facet joint oste oarthritis. There is no neural foraminal stenosis. There is no central canal stenosis. L1-L2: Disc is minimally bulging. There is mild bilateral facet joint osteoarthritis. There is no kaz ral foraminal stenosis. There is no central canal stenosis. L2-L3: Disc is mildly bulging. There is moderate bilateral facet joint osteoarthritis. There is mild bilateral neural foraminal stenosis. There is mild central canal stenosis. L3-L4: Disc is bulging. There is severe bilateral facet joint osteoarthritis. There is mild bilateral neural foraminal stenosis. There is mild central canal stenosis. L4-L5: Disc is minimally bulging. There is mild left and severe right facet joint osteoarthritis. The re is mild bilateral neural foraminal stenosis. There is no central canal stenosis. L5-S1: Small central disc protrusion. There is mild left and severe right facet joint osteoarthritis. There is no neural foraminal stenosis. There is no central canal stenosis. IMPRESSION: 1. Mild lumbar and lower thoracic spondylosis. No acute osseous abnormality. Reviewed, dictated and finalized at location A.
--- NOTE | ~2023-05-14 | XR_ITS ---
EXAMINATION: XR chest 1V DATE: 05/14/2023 18:06 INDICATION: Cough and congestion TECHNIQUE: frontal view of the chest was obtained. COMPARISON: Chest radiograph dated 02/19/[address] dated 11/11/2017 FINDINGS: Subtle increased lucency at the upper lung zones consistent with emphysema better appreciated on prio r CT. Unchanged elevation of the left hemidiaphragm and reticular opacities at the left lung base lik martin representing corresponding atelectasis/scarring. Additional linear atelectasis at the left mid savannah ng zone and the right apex. Slight irregular nodular opacity at the lateral right midlung zone which appears to correspond to an irregular nodular opacity at the time of the prior CT in 2018 but which a ppears more prominent than on the intervening chest radiograph. No pleural effusion or pneumothorax. Heart size is normal. IMPRESSION: 1. Emphysema with scattered mild atelectasis/scarring most prominent at the left lung base. 2. Indeterminate nodular opacity in the right midlung zone which appears to have been present since C T dated 2017 but which appears more conspicuous than on intervening chest radiograph. This could be d ue to differences in radiographic technique but would recommend further evaluation with follow-up [facility] st CT. Reviewed, dictated and finalized at location A. IMPRESSION: 1. Emphysema with scattered mild atelectasis/scarring most prominent at the lef t lung base. 2. Indeterminate nodular opacity in the right midlung zone which appears to hav e been present since CT dated 2017 but which appears more conspicuous than on i ntervening chest radiograph. This could be due to differences in radiographic t echnique but would recommend further evaluation with follow-up chest CT.
--- NOTE | ~2023-05-14 | XR_ITS ---
EXAMINATION: XR hip BI 2V w AP pelvis DATE: 05/14/2023 18:06 INDICATION: Right hip pain and left ear bruising post fall one week prior TECHNIQUE: Anteroposterior view of the pelvis and anteroposterior and frog-leg lateral views of the l eft hip and anteroposterior and frog-leg lateral views of the right hip and were obtained. COMPARISON: 02/04/2021 FINDINGS: Partially visualized mild lumbar levocurvature. Alignment is otherwise normal. No fracture or suspect ed avascular necrosis. Mild osteoarthritis at the bilateral hip and sacroiliac joints. Couple chronic bone islands at the right femoral head. Couple phleboliths in the right hemipelvis. Additional uncha nged chronic small heterotopic ossicles soft tissues along the right iliac crest and lateral to the l eft hip. IMPRESSION: 1. Mild osteoarthritis at the bilateral hip and sacroiliac joints. No acute osseous abnormality. Reviewed, dictated and finalized at location A. IMPRESSION: 1. Mild osteoarthritis at the bilateral hip and sacroiliac joints. No acute oss eous abnormality.
--- NOTE | 2023-05-14 17:48 | ED.GENADULT ---
HPI - General Adult General Chief complaint: Extremity Injury, Lower Stated complaint: leg pain Time Seen by Provider: 05/14/23 17:01 Source: patient Mode of arrival: EMS Limitations: other History of Present Illness HPI narrative: This is a 62-year-old female with PMH of bipolar disorder, paranoid schizophrenia, tardive dyskinesia, UTI who presents to the ED from [facility] via the EMS for chief complaint of right hip pain. Per EMS that she had a fall on the and had negative x-rays 2 days later. She has had some increased left thigh bruising as well as increased right hip pain so she is coming here today for further evaluation. Patient reports she also has not been feeling very well lately. Reports congestion, cough and runny nose. Denies fevers, chills, abdominal pain, nausea, vomiting, chest pain, shortness of breath. Per EMS she is at her normal mental status which is A&O x2-3. Related Data Home Medications Medication Instructions Recorded Confirmed Monique-Lanta 30 ml PO Q4H PRN Constipation 02/04/21 02/04/21 acetaminophen 325 mg capsule 650 mg PO Q6H PRN Pain 02/04/21 02/04/21 (Tylenol) cholecalciferol (vitamin D3) 25 25 mcg PO DAILY 02/04/21 02/04/21 mcg (1,000 unit) capsule (Vitamin D3) divalproex 500 mg tablet,delayed 1,000 mg PO HS 02/04/21 02/04/21 release fluticasone propionate 50 1 spray intranasal DAILY 02/04/21 02/04/21 mcg/actuation nasal spray,suspension (Allergy Relief (fluticasone)) ibuprofen 200 mg capsule 200 mg PO Q4H PRN Pain 02/04/21 02/04/21 loperamide 2 mg tablet 2 mg PO Q3H PRN Diarrhea 02/04/21 02/04/21 lorazepam 1 mg tablet 1 mg PO QID 02/04/21 02/04/21 lurasidone 120 mg tablet (Latuda) 120 mg PO DAILY 02/04/21 02/04/21 quetiapine 25 mg tablet (Seroquel) See Rx Instructions .Route .COMPLEX 02/04/21 02/04/21 ropinirole 2 mg tablet 2 mg PO BID 02/04/21 02/04/21 sennosides 8.6 mg-docusate sodium 1 tablet PO HS PRN Constipation 02/04/21 02/04/21 50 mg tablet (Senexon-S) atorvastatin 10 mg tablet 10 mg PO HS 06/01/21 Allergies Allergy/AdvReac Type Severity Reaction Status Date / Time No Known Allergies Allergy Unknown Verified 02/04/21 18:42 PMFSH Past Medical History Medical History Bipolar disorder Depression with anxiety Glaucoma Legal blindness Paranoid schizophrenia Stress incontinence Tardive dyskinesia Attributed to Abilify. Vitamin D deficiency Surgical History Surgical History No history of previous surgery Family History Family History Father Carcinoma of colon Family history of diabetes mellitus in first degree relative Patient's father is Family history of heart disease in male family member before age 55 Grandparent Family history of heart disease in male family member before age 55 Social History Social History (Updated 02/04/21 @ 19:57 by Breanna Vitale PA-C) Social History: Resident at [facility]. Her healthcare power of review assistant is Kirt Aguilar and she is listed as a full code. She tells me that it is okay to speak with her sister, Melisa Rodrigues, regarding her medical conditions. The patient tells me that she continues to smoke but I am not certain if this is true or not. She denies alcohol and substance use. On disability due to her psychiatric illnesses and legal blindness. Exam Narrative: GENERAL: Well-appearing, well-nourished, and in no acute distress. HEAD: Normocephalic, atraumatic. EYES: PERRLA and EOMI. ENT: Nares clear, no rhinorrhea or epistaxis. Mucous membranes moist. Oropharynx without tonsillar hypertrophy exudate or other lesions. NECK: Supple. No adenopathy or masses. CHEST: No respiratory distress. Clear to auscultation. No wheezes rales or rhonchi HEART: Regular rate and rhythm. No murmur h
[2023-05-14 18:38] LABS: Influenza A QL RT-PCR Negative (Negative); Influenza B QL RT-PCR Negative (Negative); RSV RNA, RT-PCR Negative (Negative); SARS-CoV-2 RNA PCR Negative (Negative)
[2023-05-14 19:20] LABS: Basophils Percent Auto 0.3 % (0.2-1.2); Eosinophils Percent Auto 0.5 % (0-4.4); Hemoglobin 13.2 g/dL (12.0-15.0); Immature Granulocyte Absolute 0.12 K/mm3 (0.00-0.031); Immature Granulocyte Percent A 1.4 % (0-0.5); Lymphocytes Absolute Auto 2.08 K/mm3 (0.9-3.2); Lymphocytes Percent Auto 23.9 % (18.3-44.2); Mean Corpuscular HGB Conc 31.4 g/dl (32-36); Mean Corpuscular Hemoglobin 30.8 pg (26-34); Mean Corpuscular Volume 98.1 fl (80-100); Mean Platelet Volume 9.2 fl (7.4-10.4); Monocytes Percent Auto 11.7 % (2.6-8.5); Neutrophils Absolute Auto 5.4 K/mm3 (1.3-6.7); Neutrophils Percent Auto 62.2 % (45.5-73.1); Platelet Count Result 313 k/mm3 (150-375); Red Blood Count 4.28 M/mm3 (4.2-5.4); Red Cell Distribution Width 13.7 % (11.5-14.5); White Blood Count 8.7 K/mm3 (4.5-10.0)
[2023-05-14 19:30] LABS: Alanine Aminotransferase 14 U/L (6-35); Albumin Level 3.8 g/dL (3.5-5.1); Alkaline Phosphatase 46 U/L (38-126); Anion Gap 3 mmol/L (8-16); Aspartate Amino Transferase 23 U/L (14-36); Bilirubin,Total 0.4 mg/dL (0.2-1.3); Blood Urea Nitrogen 14 mg/dL (7-17); Calcium 8.7 mg/dL (8.4-10.2); Carbon Dioxide 37 mmol/L (22-30); Chloride 101 mmol/L (98-107); Estimated CRCL calculation 72 ml/min; Estimated Glomerular Filt Rate > 60; Glucose 109 mg/dL (65-110); Potassium 4.2 mmol/L (3.4-5.0); Sodium 141 mmol/L (137-145)
[2023-05-15 00:09] VITALS: BP 112/64; PULSE 76; RESP 15; O2SAT 98
== END 2023-05-15 00:11 ==
PROVIDERS: Emergency Provider Physician Assistant; PCP Internal Medicine
DX: M25.551 Pain in right hip (principal); Z20.822 Contact with and (suspected) exposure to COVID-19
CPT/HCPCS: 36415; 71045; 72131; 73521; 80053; 85025; 87637; 99284

== ENCOUNTER 2023-05-20 09:27 | Emergency (ER) | payer OTHER, SELFPAY ==
[2023-05-20] VITALS (13 sets, daily range): BP systolic 101–107; BP diastolic 66–72; PULSE 76–92; RESP 14–20; O2SAT 94–100
--- NOTE | ~2023-05-20 | CT_ITS ---
EXAMINATION: CT brain wo con DATE: 05/20/2023 10:31 INDICATION: Trauma. Head injury. TECHNIQUE: Computed tomography (CT) of the paranasal sinuses was performed without intravenous contra st. The dose-length product was 605.33 mGy-cm. COMPARISON: CT dated 02/19/2022 FINDINGS: There are chronic infarctions with encephalomalacia of the right frontal lobe, right basal ganglia, left temporal lobe, left parietal lobe and a left occipital lobes. There is a chronic infarc tion of the left cerebellum. There are scattered mild periventricular and subcortical white matter ch anges, most likely related to small vessel ischemic disease (microangiopathy). No ventriculomegaly or midline shift. No acute infarction, hemorrhage, mass or mass effect. There is left phthisis bulbi. P aranasal sinuses and mastoids are pneumatized. No depressed skull fractures. There is intracranial at herosclerosis. IMPRESSION: 1. No acute intracranial abnormality and no significant interval change. Reviewed, dictated and finalized at location L.
--- NOTE | ~2023-05-20 | XR_ITS ---
XR chest 1V portable 05/20/2023 10:33 Indication: Fall. Weakness. Procedure: AP upright view of the chest Comparison: Comparison to multiple prior studies sequentially, with oldest reviewed study dated 02/19. Findings: Subtle infiltrates of the left mid and lower thorax. Heart size normal. No significant effu effie. Right lung clear. No pneumothorax. No edema. No acute osseous abnormality. Impression: 1: Subtle infiltrates of the left mid and lower lung which may represent atelectasis/scarring or pneu monia. Reviewed, dictated and finalized at location L. Impression: 1: Subtle infiltrates of the left mid and lower lung which may represent atelec tasis/scarring or pneumonia.
--- NOTE | ~2023-05-20 | CT_ITS ---
EXAMINATION: CT facial & cervical spine wo DATE: 05/20/2023 10:32 INDICATION: Head injury. TECHNIQUE: Computed tomography (CT) of the maxillofacial region and cervical spine was performed with out intravenous contrast. Automated exposure control and iterative reconstruction technique were empl oyed. The dose-length product was 338.15 mGy-cm. COMPARISON: Head CT 02/19/2022 FINDINGS: MAXILLOFACIAL CT: There are changes of scleral banding procedures bilaterally. There are calcifications in left ocular globe, consistent with phthisis bulbi. There are changes of right-sided lens replacement procedure. T he mastoid air cells are normal. There is cerumen in the external auditory canals. There is mild muco bridget thickening in the paranasal sinuses. There is leftward deviation of the nasal septum. There are p eriapical lucencies at tooth 30. CERVICAL SPINE CT: There is mild emphysema. There is mild scarring at the lung apices. There is kyphosis of cervical spi ne. There is 6 degrees dextrocurvature of cervical spine. Vertebral body heights are normal. There is mildly decreased disc height at C2-C3 and severely decreased disc height from C3-C4 through C7-T1. T he following disc levels are specifically discussed: C2-C3: There is moderate bilateral uncovertebral joint osteoarthritis. There is moderate right and se brien left facet joint osteoarthritis. There is mild bilateral neural foraminal stenosis. There is no central canal stenosis. C3-C4: There is severe bilateral uncovertebral joint osteoarthritis. There is severe bilateral facet joint osteoarthritis. There is mild right and moderate left neural foraminal stenosis. There is mild central canal stenosis. C4-C5: There is severe bilateral uncovertebral joint osteoarthritis. There is mild bilateral facet nanda int osteoarthritis. There is moderate bilateral neural foraminal stenosis. There is mild central reese l stenosis. C5-C6: There is severe bilateral uncovertebral joint osteoarthritis. There is mild left facet joint o steoarthritis. There is mild bilateral neural foraminal stenosis. There is mild central canal stenosi s. C6-C7: There is severe bilateral uncovertebral joint osteoarthritis. There is mild bilateral facet nanda int osteoarthritis. There is mild bilateral neural foraminal stenosis. There is mild central canal st enosis. C7-T1: There is severe bilateral uncovertebral joint osteoarthritis. There is moderate right and mild left facet joint osteoarthritis. There is moderate right and mild left neural foraminal stenosis. Th ere is mild central canal stenosis. IMPRESSION: 1. No fracture. 2. Severe cervical spondylosis. Reviewed, dictated and finalized at location A.
--- NOTE | 2023-05-20 09:47 | ECG_ITS ---
Measurements Intervals [place] Rate: 79 P: 77 [place]: 137 QRS: 40 QRSD: 85 T: 56 QT: 385 QTc: 443 Interpretive Statements SINUS RHYTHM BASELINE WANDER- I, II, AVR, AVL, V5 NORMAL ECG COMPARED TO ECG 02/19/2022 15:18:23 NO SIGNIFICANT CHANGES Electronically Signed On 05-20-2023 11:48:14 CDT by Serjio Ware D.O.
--- NOTE | 2023-05-20 09:59 | ED.GENADULT ---
HPI - General Adult General Chief complaint: Fall Stated complaint: fall Time Seen by Provider: 05/20/23 09:38 History of Present Illness HPI narrative: Kateryna Novak is a 62 y/o with PMHx of schizophrenia/ blindness who presents from [place] after ground level mechanical fall. Per report pt is not supposed to get up on her own, and she attempted to and fell on to her face. Per report pt is oriented X 1 at baseline and takes Ativan four times daily to help with agitation and she had just taken it prior to the fall. Patient is awake/ alert orientd to self tells me she is in the hospital, she remembers the fall and states she did have pain to her nose but does not any more. Follows all commands appropriately, no focal neuro deficits appreciated on initial exam Related Data Home Medications Medication Instructions Recorded Confirmed Monique-Lanta 30 ml PO Q4H PRN Constipation 02/04/21 02/04/21 acetaminophen 325 mg capsule 650 mg PO Q6H PRN Pain 02/04/21 02/04/21 (Tylenol) cholecalciferol (vitamin D3) 25 25 mcg PO DAILY 02/04/21 02/04/21 mcg (1,000 unit) capsule (Vitamin D3) divalproex 500 mg tablet,delayed 1,000 mg PO HS 02/04/21 02/04/21 release fluticasone propionate 50 1 spray intranasal DAILY 02/04/21 02/04/21 mcg/actuation nasal spray,suspension (Allergy Relief (fluticasone)) ibuprofen 200 mg capsule 200 mg PO Q4H PRN Pain 02/04/21 02/04/21 loperamide 2 mg tablet 2 mg PO Q3H PRN Diarrhea 02/04/21 02/04/21 lorazepam 1 mg tablet 1 mg PO QID 02/04/21 02/04/21 lurasidone 120 mg tablet (Latuda) 120 mg PO DAILY 02/04/21 02/04/21 quetiapine 25 mg tablet (Seroquel) See Rx Instructions .Route .COMPLEX 02/04/21 02/04/21 ropinirole 2 mg tablet 2 mg PO BID 02/04/21 02/04/21 sennosides 8.6 mg-docusate sodium 1 tablet PO HS PRN Constipation 02/04/21 02/04/21 50 mg tablet (Senexon-S) atorvastatin 10 mg tablet 10 mg PO HS 06/01/21 Allergies Allergy/AdvReac Type Severity Reaction Status Date / Time No Known Allergies Allergy Unknown Verified 02/04/21 18:42 Review of Systems Review of Systems: CONSTITUTIONAL: Denies fever, chills, or sweats. EYES: Denies visual changes, redness, or discharge. ENT: Denies rhinorrhea, congestion, sore throat, or otalgia. CARDIOVASCULAR: Denies chest pain, palpitations, or edema. RESPIRATORY: Denies cough or dyspnea. GASTROINTESTINAL: Denies abdominal pain, nausea, vomiting, or diarrhea. GENITOURINARY: Denies dysuria or hematuria. SKIN: Denies rash or itching. MUSCULOSKELETAL: Denies back pain, joint pain, or myalgia. NEUROLOGIC: Denies headache, numbness, dizziness, or weakness. [facility], LAT[facility] Past Medical History Medical History Bipolar disorder Depression with anxiety Glaucoma Legal blindness Paranoid schizophrenia Stress incontinence Tardive dyskinesia Attributed to Abilify. Vitamin D deficiency Surgical History Surgical History No history of previous surgery Family History Family History Father Carcinoma of colon Family history of diabetes mellitus in first degree relative Patient's father is Family history of heart disease in male family member before age 55 Grandparent Family history of heart disease in male family member before age 55 Social History Social History Social History: Resident at [facility]. Her healthcare power of banking attorney is Kirt Aguilar and she is listed as a full code. She tells me that it is okay to speak with her sister, Melisa Rodrigues, regarding her medical conditions. The patient tells me that she continues to smoke but I am not certain if this is true or not. She denies alcohol and substance use. On disability due to her psychiatric illnesses and legal blindness. Exam Narrative: GENERAL: Well-appeari
[2023-05-20 10:15] LABS: Basophils Percent Auto 0.3 % (0.2-1.2); Eosinophils Absolute Auto 0.1 K/mm3 (0-0.3); Eosinophils Percent Auto 0.4 % (0-4.4); Hematocrit 40.8 % (37.0-47.0); Hemoglobin 12.8 g/dL (12.0-15.0); Immature Granulocyte Absolute 0.07 K/mm3 (0.00-0.031); Immature Granulocyte Percent A 0.6 % (0-0.5); Lymphocytes Absolute Auto 2.59 K/mm3 (0.9-3.2); Lymphocytes Percent Auto 21.4 % (18.3-44.2); Mean Corpuscular HGB Conc 31.4 g/dl (32-36); Mean Corpuscular Hemoglobin 30.1 pg (26-34); Mean Platelet Volume 9.6 fl (7.4-10.4); Monocytes Absolute Auto 0.8 K/mm3 (0.1-0.6); Monocytes Percent Auto 6.3 % (2.6-8.5); Neutrophils Absolute Auto 8.6 K/mm3 (1.3-6.7); Platelet Count Result 284 k/mm3 (150-375); Red Blood Count 4.25 M/mm3 (4.2-5.4); Red Cell Distribution Width 14.1 % (11.5-14.5); White Blood Count 12.1 K/mm3 (4.5-10.0)
[2023-05-20 10:29] LABS: Anion Gap 2 mmol/L (8-16); Blood Urea Nitrogen 15 mg/dL (7-17); Calcium 8.9 mg/dL (8.4-10.2); Carbon Dioxide 32 mmol/L (22-30); Chloride 105 mmol/L (98-107); Estimated Glomerular Filt Rate > 60; Glucose 127 mg/dL (65-110); Potassium 3.6 mmol/L (3.4-5.0); Sodium 139 mmol/L (137-145)
[2023-05-20 10:40] LABS: Troponin I < 0.012 ng/mL (0.000-0.034)
== END 2023-05-20 16:14 ==
PROVIDERS: Emergency Provider Nurse Practitioner Family; PCP Internal Medicine
DX: S01.21XA Laceration without foreign body of nose, initial encounter (principal); J18.9 Pneumonia, unspecified organism; E55.9 Vitamin D deficiency, unspecified; H40.9 Unspecified glaucoma; H54.8 Legal blindness, as defined in USA; F20.9 Schizophrenia, unspecified; F31.9 Bipolar disorder, unspecified; F20.0 Paranoid schizophrenia; N39.3 Stress incontinence (female) (male); G24.01 Drug induced subacute dyskinesia; T43.595A Adverse effect of other antipsychotics and neuroleptics, initial encounter; M47.812 Spondylosis without myelopathy or radiculopathy, cervical region; W19.XXXA Unspecified fall, initial encounter
CPT/HCPCS: 12011; 36415; 70450; 70486; 71045; 72125; 80048; 84484; 85025; 93005; 99284; J0696

== ENCOUNTER 2024-04-14 18:58 | Emergency (ER) | payer OTHER, SELFPAY ==
--- NOTE | ~2024-04-14 | CT_ITS ---
CT brain wo con Ordering provider: Quinten Forbes MD History: 63 years Female with . fall . Comparison: None. Technique: CT of the head without contrast. Radiation reduction technique utilized. DLP is 681 mGy-cm. FINDINGS: BRAIN PARENCHYMA AND CSF SPACES: Mild leukoaraiosis and diffuse cortical atrophy. Mild atheromatous d isease. 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 No midline shift, mass effect or hemorrhage. The brain parenchyma and CSF spac es are otherwise normal. VISUALIZED PARANASAL SINUSES: Well aerated. MASTOIDS: Well aerated. BONES: The bones appear intact. SOFT TISSUES: Visualized nasopharynx is normal. Superficial soft tissues are normal. Calcification in the left eye globe. IMPRESSION: No acute intracranial findings. Reviewed, dictated and finalized at location A.
--- NOTE | ~2024-04-14 | CT_ITS ---
CT facial bones wo con Ordering provider: Micaela Hernandez MD History: . nose pain . Comparison: None. Technique: Thin slice axial CT of the facial bones was performed without contrast. Coronal and sagit tien reformatted images were also obtained. . Automated exposure control and iterative reconstruction technique were employed. The dose-length product was 501.44 mGy-cm. FINDINGS: PARANASAL SINUSES: Right and left maxillary sinus disease. BONES: No facial fracture including no nasal bone fracture. Mild left nasal septal deviation. ORBITS AND SUPERFICIAL SOFT TISSUES: The optic globes and orbits shows calcification in the left glob e suggestive of phthises bulbi. The superficial soft tissues are normal. Soft tissue density seen in the inferior right nasal cavity which is suggestive of a polyp. Clinical evaluation advised. VISUALIZED MASTOIDS: Well aerated. LIMITED VISUALIZED BRAIN PARENCHYMA: Normal. IMPRESSION: No facial fracture. Bilateral maxillary sinus disease. Left nasal septal deviation. highly suggestive polyp in the right nasal cavity. Clinical evaluation advised. Reviewed, dictated and finalized at location A.
[2024-04-14 18:58] VITALS: BP 116/74; PULSE 87; RESP 13; TEMP 36.4; O2SAT 98
[2024-04-14 19:00] VITALS: BP 116/74; PULSE 85; RESP 16; O2SAT 98
--- NOTE | 2024-04-14 19:25 | ED.FALL ---
HPI - Fall General Chief Complaint: Fall Stated Complaint: fall Time Seen by Provider: 04/14/24 19:06 History of Present Illness HPI Narrative: Patient accidentally slipped out of her wheelchair And fell, landing on the right side of her head she denies any pain anywhere else. Related Data Home Medications Medication Instructions Recorded Confirmed Monique-Lanta 30 ml PO Q4H PRN Constipation 02/04/21 02/04/21 acetaminophen 325 mg capsule 650 mg PO Q6H PRN Pain 02/04/21 02/04/21 (Tylenol) cholecalciferol (vitamin D3) 25 25 mcg PO DAILY 02/04/21 02/04/21 mcg (1,000 unit) capsule (Vitamin D3) divalproex 500 mg tablet,delayed 1,000 mg PO HS 02/04/21 02/04/21 release fluticasone propionate 50 1 spray intranasal DAILY 02/04/21 02/04/21 mcg/actuation nasal spray,suspension (Allergy Relief (fluticasone)) ibuprofen 200 mg capsule 200 mg PO Q4H PRN Pain 02/04/21 02/04/21 loperamide 2 mg tablet 2 mg PO Q3H PRN Diarrhea 02/04/21 02/04/21 lorazepam 1 mg tablet 1 mg PO QID 02/04/21 02/04/21 lurasidone 120 mg tablet (Latuda) 120 mg PO DAILY 02/04/21 02/04/21 quetiapine 25 mg tablet (Seroquel) See Rx Instructions .Route .COMPLEX 02/04/21 02/04/21 ropinirole 2 mg tablet 2 mg PO BID 02/04/21 02/04/21 sennosides 8.6 mg-docusate sodium 1 tablet PO HS PRN Constipation 02/04/21 02/04/21 50 mg tablet (Senexon-S) atorvastatin 10 mg tablet 10 mg PO HS 06/01/21 Allergies Allergy/AdvReac Type Severity Reaction Status Date / Time No Known Allergies Allergy Unknown Verified 02/04/21 18:42 [facility] Past Medical History Medical History Bipolar disorder Depression with anxiety Glaucoma Legal blindness Paranoid schizophrenia Stress incontinence Tardive dyskinesia Attributed to Abilify. Vitamin D deficiency Surgical History Surgical History No history of previous surgery Family History Family History Father Carcinoma of colon Family history of diabetes mellitus in first degree relative Patient's father is Family history of heart disease in male family member before age 55 Grandparent Family history of heart disease in male family member before age 55 Social History Social History Social History: Resident at [facility]. Her healthcare power of erisa attorney is Kirt Aguilar and she is listed as a full code. She tells me that it is okay to speak with her sister, Melisa Rodrigues, regarding her medical conditions. The patient tells me that she continues to smoke but I am not certain if this is true or not. She denies alcohol and substance use. On disability due to her psychiatric illnesses and legal blindness. Exam Narrative: EXAMINATION OF ORGAN SYSTEMS/BODY AREAS: Constitutional: Vital signs per nursing GENERAL:[No acute distress, non-toxic appearing.] HEAD: hematoma right forehead EYES: EOMI, conjunctiva normal ENT: Hearing grossly intact LUNGS: Nonlabored breathing. HEART: [Regular rate and rhythm] ABD: no distension EXT: Normal range of motion SKIN: hematoma right forehead NEURO: [ Sleepy but wakes to voice. No gross focal sensory or strength deficits.] PSYCH: cooperative and answers questions appropriately Course Vital Signs Vital signs: Vital Signs Temperature 97.6 F 04/14/24 18:58 Pulse Rate 87 04/14/24 18:58 Respiratory Rate 13 04/14/24 18:58 Blood Pressure 116/74 04/14/24 18:58 Pulse Oximetry 98 04/14/24 18:58 Oxygen Delivery Room Air 04/14/24 18:58 Temperature 97.6 F 04/14/24 18:58 Pulse Rate 85 04/14/24 20:15 Respiratory Rate 15 04/14/24 20:15 Blood Pressure 122/81 04/14/24 20:15 Pulse Oximetry 98 04/14/24 20:15 Oxygen Delivery Room Air 04/14/24 18:58 MDM - Fall MDM Narrative Medical decision vaishali
[2024-04-14 20:00] VITALS: BP 123/63; PULSE 83; RESP 12; O2SAT 98
[2024-04-14 20:15] VITALS: BP 122/81; PULSE 85; RESP 15; O2SAT 98
[2024-04-14 23:38] VITALS: BP 116/64; PULSE 84; RESP 16; O2SAT 100
== END 2024-04-14 23:38 ==
PROVIDERS: Emergency Provider Emergency Medicine
DX: S00.83XA Contusion of other part of head, initial encounter (principal); J33.9 Nasal polyp, unspecified; H40.9 Unspecified glaucoma; H54.8 Legal blindness, as defined in USA; N39.3 Stress incontinence (female) (male); G24.01 Drug induced subacute dyskinesia; T43.595A Adverse effect of other antipsychotics and neuroleptics, initial encounter; E55.9 Vitamin D deficiency, unspecified; F41.8 Other specified anxiety disorders; F31.9 Bipolar disorder, unspecified; F20.0 Paranoid schizophrenia; Z79.899 Other long term (current) drug therapy; W05.0XXA Fall from non-moving wheelchair, initial encounter
CPT/HCPCS: 70450; 70486; 99284